=== PATIENT | female | born 1955 | race Native Hawaiian/Other Pacific Islander ===

== ENCOUNTER 2016-06-08 10:10 | Outpatient (CLI) | payer MEDICAID ==
--- NOTE | 2016-06-09 10:13 | PET Report ---
PET/CT:06/08/16 10:10:00 CLINICAL: Breast cancer restaging. RADIOPHARMACEUTICAL: 13.74mCi F18-FDG. COMPARISON: 08/06/14 PET/CT and 12/24/15 CT CAP TECHNIQUE- Following intravenous injection of F-18 FDG and an approximately 60 minute uptake period, CT and PET images from the mid skull to the upper thighs were acquired with the patient in the fasted state. No contrast was administered. The CT protocol used for this PET CT study is designed for attenuation correction and anatomic localization of PET abnormalities. This jukebox route driver CT is not desired to produce and cannot replace, ukimm-mm-mgu-art diagnostic CT scans with specific imaging protocols for different body parts and indications. Plasma glucose at the time of this test: 141g/dl. The standardized uptake values (SUV) are normalized to patient body weight and indicate the highest activity concentration (SUV max) in a given disease site. FINDINGS: Brain--Physiologic FDG uptake in the visualized regions of the brain. Neck--Physiologic FDG uptake . Chest--Physiologic FDG uptake in mediastinal blood pool and myocardium. Lungs--No abnormal uptake. However, three new left lower lobe nodular lung opacities with indistinct margins. The largest measures approximately 1 cm. Pleura/pericardium--No abnormal uptake. Thoracic nodes--No abnormal uptake. Hepatobiliary--No abnormal uptake. Liver background SUV mean, as a reference for comparing FDG studies, is 3.4 compared to 3.2 on the last exam. No liver mass. Spleen--No abnormal uptake. Pancreas--No abnormal uptake. Adrenal Glands--No abnormal uptake. Kidneys/Ureters/Bladder--No abnormal uptake. Abdominopelvic Nodes--No abnormal uptake. Bowel/Peritoneum/Mesentery--No abnormal uptake. Pelvic organs--No abnormal uptake. Bones/Soft Tissues--New focal FDG uptake in the right L5 pedicle and right transverse process with SUV 8.8. A subtle lytic lesion measures approximately 1 cm. No other bone lesions. IMPRESSION- 1. Three new left lower lobe nodular lung opacities with minimal FDG uptake. The differential is between pneumonia and metastasis. The nodules are probably not large enough or dense enough for CT biopsy. 2. New lytic metastasis of the right L5 pedicle and transverse process. 3. No evidence of hepatic or hailey metastasis.
== END 2016-06-08 10:11 | disposition home or self-care (01) ==
LOC: PET 10:10
PROVIDERS: ATTEND Internal Medicine Hematology & Oncology
DX: C50.812 Malignant neoplasm of overlapping sites of left female breast (principal)
CPT/HCPCS: 78815; 82962; A9552

== ENCOUNTER 2016-11-10 09:04 | Outpatient (CLI) | payer MEDICAID ==
[2016-11-10 10:18] LABS: Blood Urea Nitrogen 19 mg/dL (7-17)
[2016-11-10] MEDS ORDERED: NACL ONE (10:28)
--- NOTE | 2016-11-10 11:49 | Cat Scan Report ---
CT scan of chest with IV contrast: History: Breast cancer. Findings: No endobronchial or mediastinal mass. No mediastinal, hilar or axillary adenopathy. No pleural pericardial effusion. Patchy faint ground glass opacities in lower lobes bilaterally. No mass or discrete nodularity. Impression: No adenopathy. No mediastinal mass. Patchy scattered groundglass densities lower lobes, probably suggestive of pneumonitis or early interstitial lung disease among others.
--- NOTE | 2016-11-10 12:08 | Cat Scan Report ---
CT ABDOMEN AND PELVIS WITH CONTRAST INDICATION: Breast cancer. COMPARISON: 12/24/2015. FINDINGS: Abdomen and pelvis CT performed following oral contrast and intravenous administration of 100 cc of Omnipaque 300. LUNG BASES: Minimal bilateral lower lobe groundglass haziness. Nonspecific distal esophageal wall prominence/thickening, not excluded for gastroesophageal reflux and/or hiatal hernia, amongst others. ABDOMEN: Stable cholecystectomy clips. Liver, spleen, pancreas, adrenals, aorta, IVC, kidneys and opacified bowel within normal limits. No ascites or size significant adenopathy. Normal appendix. Mild to moderate colonic stool, greatest along the ascending colon. Stable supra-umbilical right paramedian fat containing hernia with a transverse neck of 1 cm, axial image 394, series 2. PELVIS: Urinary bladder, uterus and adnexa/ovaries appear within normal limits. Few small pelvic phleboliths. Mild rectosigmoid stool. No free fluid or significant adenopathy. Severe L5-S1 disc narrowing with vacuum phenomenon and mild degenerative spurring again noted. Additional mild multilevel spinal degenerative spurring and lower lumbar facet arthropathy. CONCLUSION: No acute CT abnormality or evidence of metastatic disease with few incidental findings, including distal esophageal prominence/thickening, cholecystectomy, small right paramidline fat containing ventral hernia, lower lumbar degenerative changes and possible mild constipation, as described. Thank you for the opportunity to participate in this patient's care.
--- NOTE | 2016-11-10 13:59 | Nuclear Medicine Report ---
NM BONE SCAN INDICATION: Breast cancer. COMPARISON: 08/17/2015. FINDINGS: Following uneventful intravenous administration of 25 mCi of technetium 99m MDP, whole-body bone scan performed in anterior and posterior projections from the top of the head to the bottom of the feet. It reveals no definite evidence of bony metastatic disease with slight degenerative uptake at the shoulders, knees, feet and right hip. The renal shadows are symmetric and normal in position with expected excreted radioactivity within the urinary bladder. The soft tissues appear within normal limits. CONCLUSION: No evidence of bony metastatic disease, as detailed above. Thank you for the opportunity to participate in this patient's care.
== END 2016-11-10 09:05 | disposition home or self-care (01) ==
LOC: NM 09:04
PROVIDERS: ATTEND Internal Medicine Hematology & Oncology
DX: C50.812 Malignant neoplasm of overlapping sites of left female breast (principal); K43.9 Ventral hernia without obstruction or gangrene; I87.8 Other specified disorders of veins; M12.88 Other specific arthropathies, not elsewhere classified, other specified site; M47.896 Other spondylosis, lumbar region; Z90.49 Acquired absence of other specified parts of digestive tract
CPT/HCPCS: 36415; 71260; 74177; 78306; 82565; 84520; A9503; Q9967

== ENCOUNTER 2017-05-14 07:36 | Outpatient (CLI) | payer MEDICAID ==
[2017-05-14] MEDS ORDERED: NACL ONE (08:28)
[2017-05-14 08:41] LABS: Blood Urea Nitrogen 16 mg/dL (7-17)
--- NOTE | 2017-05-14 15:08 | Nuclear Medicine Report ---
NUCLEAR MEDICINE WHOLE-BODY BONE SCAN: 05/14/17 CLINICAL: Breast cancer restaging. COMPARISON: 11/10/16 TECHNIQUE: 25 millicuries technetium 99m MDP was injected intravenously and whole body scans were obtained at 3 hours. FINDINGS: No suspicious uptake in the bones or soft tissues. Mild asymmetric uptake in L5-S1 is presumably related to degenerative disc disease. There is slightly greater activity on the right side. IMPRESSION: Negative for metastatic disease.
--- NOTE | 2017-05-15 10:58 | Cat Scan Report ---
CT CHEST WITH CONTRAST: HISTORY: Metastatic breast cancer. COMPARISON: 11/10/16. TECHNIQUE: Helical CT in 1.25mm intervals following IV contrast. Sagittal and coronal reformatted images. FINDINGS: Thyroid gland: Normal. Tracheobronchial tree: Normal. Esophagus: Normal. Heart: Normal. Pericardium: Normal. Mediastinum: No mediastinal mass or adenopathy has developed. Subcentimeter lymph nodes are stable in size and number. Lung Sanchez: Moderate patchy groundglass infiltration is identified throughout both lungs on today's examination. This is most pronounced in the lower lobes. This has increased since the comparison exam. A 2.1 x 1.4 cm area of scarring or segmental atelectasis has developed in the lingula. No discrete nodule, mass or consolidation. Pleural Spaces: Normal. Musculoskeletal: Within normal limits. No bony lesion is detected. IMPRESSION: There are increased bilateral groundglass lung opacities on today's exam. Considerations include congestive changes, infiltrates or pneumonitis. I suspect this could be inflammatory in origin. No chest mass or adenopathy is identified.
--- NOTE | 2017-05-15 11:10 | Cat Scan Report ---
CT ABDOMEN PELVIS WITH CONTRAST: HISTORY: Metastatic breast cancer, restaging. COMPARISON: 11/10/16. TECHNIQUE: Helical CT in 1.25mm intervals following IV contrast. Sagittal and coronal reconstructions. FINDINGS: Liver: Normal. Biliary system: Cholecystectomy. No biliary dilatation. Pancreas: Normal. Spleen: Normal. Kidneys/ureters/bladder: Normal. Adrenal glands: Normal. Aorta: Normal. Intestines: Normal. Appendix: Normal. Pelvic viscera: Normal. Ascites: None. Adenopathy: None. Musculoskeletal: Mild lumbar spondylosis. No suspicious bony lesion or fracture. Small paraumbilical ventral wall defect containing fat is unchanged. IMPRESSION: Unremarkable CT scan of the abdomen and pelvis with contrast. No evidence for metastatic disease to the abdomen or pelvis.
== END 2017-05-14 07:37 | disposition home or self-care (01) ==
LOC: NM 07:36
PROVIDERS: ATTEND Internal Medicine Hematology & Oncology
DX: C50.812 Malignant neoplasm of overlapping sites of left female breast (principal); R91.8 Other nonspecific abnormal finding of lung field; R93.8 Abnormal findings on diagnostic imaging of other specified body structures; R21 Rash and other nonspecific skin eruption; M47.896 Other spondylosis, lumbar region; Z90.49 Acquired absence of other specified parts of digestive tract
CPT/HCPCS: 36415; 71260; 74177; 78306; 82565; 84520; A9503; Q9967

== ENCOUNTER 2018-10-08 11:37 | Outpatient (CLI) | payer MEDICAID ==
[2018-10-08 12:58] LABS: Blood Urea Nitrogen 9 mg/dL (7-17)
--- NOTE | 2018-10-08 15:42 | Cat Scan Report ---
CT chest w con, CT abdomen pelvis w con INDICATION: RASH OTHER NONSPECIFIC SKIN ERUPTION. TECHNIQUE: All CT scans at this location are performed using the following dose modulation technique: Automated exposure control. CONTRAST: IV. COMPARISON: CT chest, abdomen and pelvis 12/24/2015. CT CHEST: The lungs contain groundglass opacity and patchy infiltrates greatest at the lung bases the re is some involvement at the right upper lobe posteriorly and the superior segments of the lower lob es. Negative for mass or dense infiltrate or pleural spinal mass or adenopathy is present. CT ABDOMEN: The parenchymal organs are unremarkable in appearance. Negative for abdominal mass, flui d collection or inflammation. The bowel is not dilated or thickened. Status post previous cholecystectomy. Negative for biliary dilatation. CT PELVIS: Negative for mass, adenopathy or inflammation. A fat-containing ventral hernia to the right of midline just above the umbilicus is unchanged. IMPRESSION: 1. Multifocal pneumonia greatest at the bases. 2. No acute abnormality of the abdomen/pelvis. Signer Name: Rosendo Gooden MD Signed: 10/08/2018 3:38 PM Workstation Name: [id number]
--- NOTE | 2018-10-08 15:43 | Cat Scan Report ---
CT NECK WITH INTRAVENOUS CONTRAST AND MULTIPLANAR RECONSTRUCTION CLINICAL HISTORY: Cough. Breast cancer patient. TECHNIQUE: 2.5 mm thick contiguous axial scans were obtained from the skull base down to the aortic arch during intravenous contrast administration. In addition to evaluation of axial source images sagittal and co yevgeniy multiplanar reconstructions were produced and reviewed for this report. FINDINGS: No abnormalities are seen along the course of the airway. Nasopharynx, oropharynx, hypopharynx, laryn x and visualized portions of the subglottic airway all have an unremarkable appearance. There is no indication of cervical lymphadenopathy. No abnormalities are seen in evaluation of the oral cavity and tongue. The floor the mouth has a norm al appearance. The parotid and submandibular salivary glands have a normal appearance. Evaluation of the nasal cavity reveals no abnormality. Inflammatory mucosal disease is present at the base of both maxillary sinuses. The paranasal sinuses are otherwise free from inflammatory mucosal d isease. Evaluation of the orbits a reveals no abnormality. The thyroid gland is normal in size and homogeneous in attenuation. No focal thyroid lesions are iden tified. Evaluation of the cervical spine reveals no abnormality. Normal alignment is maintained. No significa nt degenerative changes are identified. Evaluation of the lung apices reveals no abnormality. There is no indication of lung nodule or infilt rate. The visualized portions of the superior mediastinum have an unremarkable appearance. Enhancement of normal vascular structures is demonstrated. No areas of abnormal contrast enhancement are identified. A right-sided Port-A-Cath is present. The catheter enters internal jugular vein at about the C6 level and ascending this into the superior vena cava. Contrast opacification of the Port-A-Cath lumen is n oted. IMPRESSION: 1. No significant abnormalities are demonstrated on CT neck with intravenous contrast. All CT imaging studies performed at this facility utilize dose modulation, iterative reconstruction o r weight based dosing, if appropriate, to obtain the lowest achievable radiation dose. Signer Name: Eric Cox MD Signed: 10/08/2018 3:39 PM Workstation Name: [email or web address]
== END 2018-10-08 11:38 | disposition home or self-care (01) ==
LOC: CT 11:37
PROVIDERS: ATTEND Internal Medicine Hematology & Oncology
DX: K43.9 Ventral hernia without obstruction or gangrene (principal); J18.9 Pneumonia, unspecified organism; C50.812 Malignant neoplasm of overlapping sites of left female breast
CPT/HCPCS: 36415; 70491; 71260; 74177; 82565; 84520; Q9967

== ENCOUNTER 2019-01-13 11:35 | Outpatient (CLI) | payer MEDICAID ==
--- NOTE | 2019-01-13 13:14 | XRay Report ---
FACIAL BONES HISTORY: Metastatic breast cancer and facial pain after beginning a new medicine. COMPARISON: None. TECHNIQUE: 3 view(s) of the facial bones obtained. FINDINGS: Paranasal sinuses: Clear. Bones: No fracture or suspicious bone lesion. Soft tissues: Normal. Additional findings: None. IMPRESSION: Normal study. Signer Name: Jeyson Bond MD Signed: 01/13/2019 1:09 PM Workstation Name: [id number]
--- NOTE | 2019-01-13 13:15 | XRay Report ---
MANDIBLE HISTORY: Metastatic breast cancer and new facial pain. COMPARISON: None. TECHNIQUE: 5 views of the mandible were obtained. FINDINGS: Mandible: No fracture or suspicious bone lesion. Bones: No significant abnormality. Soft tissues: Normal. Additional findings: None. IMPRESSION: Normal study. Signer Name: Jeyson Bond MD Signed: 01/13/2019 1:11 PM Workstation Name: [id number]
== END 2019-01-13 11:36 | disposition home or self-care (01) ==
LOC: SPVIMAG 11:35
PROVIDERS: ATTEND Internal Medicine Hematology & Oncology
DX: C50.812 Malignant neoplasm of overlapping sites of left female breast (principal); R21 Rash and other nonspecific skin eruption
CPT/HCPCS: 70110; 70150

== ENCOUNTER 2019-04-07 08:48 | Outpatient (CLI) | payer MEDICAID ==
[2019-04-07 09:53] LABS: Blood Urea Nitrogen 18 mg/dL (7-17)
--- NOTE | 2019-04-07 11:51 | Cat Scan Report ---
CT CHEST, ABDOMEN, AND PELVIS WITH IV CONTRAST INDICATION: C50.812 MALIGNANT NEOPLASM OF OVERLAPPING OF LEFT FEMALE BREAST. TECHNIQUE: Axial CT images were obtained through the chest, abdomen, and pelvis after 100 mL Omnipaque [address] All [address] scans at this location are performed using CT dose reduction for ALARA by means of aut omated exposure control. COMPARISON: CT chest, abdomen and pelvis with contrast from 10/08/2018. FINDINGS: MEDIASTINUM: The thyroid gland is unremarkable. The trachea and main bronchi are patent and normal in caliber. No mass or lymphadenopathy is seen. Heart size is normal without a significant pericardial effusion. THORACIC AORTA and ARTERIES: The aorta is patent and normal in caliber with mild atherosclerosis. No additional significant abnormality is seen. LUNGS: Aeration of the lungs has improved in the interval. Mild groundglass opacities remain along th e upper and lower lobes. No new nodule or mass is identified. No pneumothorax or pleural effusion is seen. LIVER: No significant abnormality. BILIARY: Prior cholecystectomy. No biliary ductal dilatation. PANCREAS: No significant abnormality. SPLEEN: No significant abnormality. ADRENALS: No significant abnormality. KIDNEYS AND URETERS:No significant abnormality. GI TRACT:No significant abnormality of the stomach, small bowel or colon. Normal appendix. PERITONEUM: No free fluid. No free air. No fluid collection. LYMPH NODES: No significant adenopathy. URINARY BLADDER: No significant abnormality. REPRODUCTIVE ORGANS: No significant abnormality. ADDITIONAL FINDINGS: The right chest Port-A-Cath is unchanged in position. No breast mass or axillary lymphadenopathy is seen. Small ventral hernias containing fat are unchanged. SKELETAL SYSTEM: No acute abnormality or aggressive appearing lesion. Degenerative changes are again noted throughout the spine and along the pelvis. IMPRESSION: 1. Improved aeration of the lungs with mild residual bilateral ground glass opacities, which may repr esent a chronic/recurrent infectious/inflammatory process. Malignancy is a less likely consideration. 2. No evidence of metastatic disease in the abdomen or pelvis. Signer Name: Sal Wills MD Signed: 04/07/2019 11:46 AM Workstation Name: [id number]
--- NOTE | 2019-04-07 12:54 | Nuclear Medicine Report ---
NUCLEAR MEDICINE BONE SCAN, WHOLE BODY INDICATION: C50.812 MALIGNANT NEOPLASM OF OVERLAPPING SITES OF LEFT FEMALE BR. TECHNIQUE: 27.5 mCi of Tc-99m MDP were injected IV. Whole body images were obtained. COMPARISON: CT chest, abdomen and pelvis with contrast performed earlier today. FINDINGS: Articular Structures: Uptake along the cervical spine, shoulders, knees and left foot likely represen ts degenerative change. Skeletal Lesions: Not seen previously, there is focal uptake anteriorly throughout the left ribs with out a distinct correlate to the abnormality on the CT from the same day. No other skeletal lesions ar e identified. Soft Tissues: Normal. Kidneys: Normal. Additional Findings: None. IMPRESSION: 1. Nonspecific uptake along the left ribs without a distinct associated CT abnormality. These finding s could represent sequela of recent trauma. Please correlate with the clinical findings. 2. No other scintigraphic evidence of osseous metastatic disease. Signer Name: Sal Wills MD Signed: 04/07/2019 12:50 PM Workstation Name: [id number]
== END 2019-04-07 08:49 | disposition home or self-care (01) ==
LOC: NM 08:48
PROVIDERS: ATTEND Internal Medicine Hematology & Oncology
DX: K43.9 Ventral hernia without obstruction or gangrene (principal); C50.812 Malignant neoplasm of overlapping sites of left female breast; R93.89 Abnormal findings on diagnostic imaging of other specified body structures; R21 Rash and other nonspecific skin eruption
CPT/HCPCS: 36415; 71260; 74177; 78306; 82565; 84520; A9503; Q9967

== ENCOUNTER 2021-06-23 08:40 | Outpatient (CLI) | payer MEDICARE ==
--- NOTE | 2021-06-23 12:48 | PET Report ---
PET CT SKULL BASE TO MID THIGH HISTORY: History of breast cancer.; Evaluation for subsequent treatment planning. COMPARISON: PET/CT reported to be complete 2 months ago not available for comparison. Comparison is made to PET/CT 06/08/2016. Additional comparison to CT chest abdomen and pelvis 04/07/2019. No other mo re recent cross sectional imaging available. TECHNIQUE: F-18 FDG was administered via the right antecubital fossa 75 minutes later, the patient u nderwent dedicated PET CT imaging from the skull base through the feet utilizing an integrated PET CT scanner. CT transmission images acquired are non-contrast and low dose. CT transmission images are acquired for lesion localization and attenuation correction. The patient's blood sugar level was doc umented to be 81 mg/dL. RADIOPHARMACEUTICAL: 12.814 mCi of F-18 FDG. FINDINGS: HEAD AND NECK: Physiologic activity demonstrated. Left side level II a lymph node demonstrates modera te FDG avid activity with average SUV of 3.4 SUV. This measures 9 mm long axis, within normal limits of size. Additional small FDG avid focus of activity level III on the left thought reflect additional nonenlarged lymph node averages 3.3 SUV. CHEST: Physiologic activity demonstrated. No pulmonary nodules or suspicious adenopathy. ABDOMEN AND PELVIS: Physiologic activity in the liver, spleen, kidneys, collecting system and bowel. Left pelvic lymph node adjacent the common femoral artery has average SUV of 5.2 size measures 8-9 mm short axis. No other suspicious adenopathy. MARROW: Physiologic activity demonstrated. Additional Findings: Moderately intense FDG avid activity within the right facet articulation of L5 a nd within the right pedicle is reidentified. Little interval change in the appearance of the vertebra l body is noted since 2017. This finding is stable. IMPRESSION: 1. The previous FDG avid foci described within the left lower lobe in 2017 are no longer identified. 2. Scattered hailey foci of FDG avid activity within the neck and left pelvis as detailed. Lymph node sizes appear upper limits of normal to normal. Significance uncertain. 3. Stable FDG avid focus right L5 pedicle and facet. Noncontrast enhanced nonfused CT suggests little interval change in this region. Signer Name: Salvador Dinero II, MD Signed: 06/23/2021 12:43 PM Workstation Name: [id number]
== END 2021-06-23 08:41 | disposition home or self-care (01) ==
LOC: PET 08:40
PROVIDERS: ATTEND Internal Medicine Hematology & Oncology
DX: C50.812 Malignant neoplasm of overlapping sites of left female breast (principal)
CPT/HCPCS: 78815; 82962; A9552